=== PATIENT | female | born 1985 | race African-American/Black ===

== ENCOUNTER 2019-04-20 02:45 | Inpatient (IN) | payer OTHER ==
[2019-04-20] MEDS ORDERED: ELECTROLYTE-148 SOLN 500 ML IV ONE (03:00)
[2019-04-20 03:50] LABS: BASO % 0.6 % (0-2.0); HEMATOCRIT 38.4 % (32.4-45.2); HEMOGLOBIN 12.7 GM/dL (10.7-15.3); LYMPH % 18.6 % (8-40); MCH 28.2 pg (25.7-33.7); MEAN CELL VOLUME 85.6 fl (80-96); MEAN PLT VOLUME 10.5 fl (7.5-11.1); MONO % 8.4 % (3.8-10.2); NEUT % 71.4 % (42.8-82.8); PLATELET COUNT 187 K/MM3 (134-434); RBC 4.49 M/mm3 (3.60-5.2); RDW 15.7 % (11.6-15.6); WHITE BLOOD COUNT 8.2 K/mm3 (4.0-10.0)
[2019-04-20 04:01] LABS: INR 0.89 (0.83-1.09); PROTHROMBIN TIME (PATIENT) 10.5 SEC (9.7-13.0)
[2019-04-20 04:03] LABS: ACTIVATED PTT 26.3 SECONDS (25.2-36.5)
[2019-04-20 04:07] LABS: CALCIUM 8.7 mg/dL (8.5-10.1); CREATININE 0.8 mg/dL (0.55-1.3); POTASSIUM 4.2 mmol/L (3.5-5.1)
[2019-04-20 04:15] VITALS: BMI 34.4
[2019-04-20] MEDS ORDERED: CITRIC ACID/SODIUM CITRATE 30 ML UNIT-DOSE CUP PO ONE (04:30)
[2019-04-20] MEDS ORDERED: BENZOCAINE 20% 57 GM BOTTLE TP PRN (05:04)
[2019-04-20] MEDS ORDERED: BENZOCAINE 28 GM HEMORRHOIDAL OINTMENT PR PRN (05:04)
[2019-04-20] MEDS ORDERED: WITCH HAZEL 50% (TUCKS) 40 PAD/JAR PAD TP PRN (05:04)
[2019-04-20] MEDS ORDERED: diphenhydrAMINE HCL 25 MG CAPSULE (FP) PO PRN (05:04)
[2019-04-20] MEDS ORDERED: HYDROmorphone HCL 2 MG TABLET PO PRN (05:04)
[2019-04-20] MEDS ORDERED: METHYLERGONOVINE MALEATE 0.2 MG/1 ML AMP IM PRN (05:04)
[2019-04-20] MEDS ORDERED: morphine SULFATE/PF 0.5 MG/ML (2cc Syringe - QUVA) ONE (05:07)
--- NOTE | 2019-04-20 05:19 | HP ---
Past Medical History - Primary Care Physician PCP:: Natalie Oliva - Admission Chief Complaint: Previous Section History of Present Illness: 34 yo G 4 P 1021 EDC 04/28/2019 EGA 36. week with previous CS and active labor for repeat section AMA Hx of OBESIY VTOPx2 low lying placenta resolved Normal GCT History Source: Patient Limitations to Obtaining History: No Limitations - Past Medical History ...: 4 ...Para: 1 ...Term: 1 ...Induced : 2 ...LMP: 07/22/18 ... Weeks Gestation by Dates: 38.6 ...EDC by Dates: 04/28/19 ...EDC by Sono: 04/28/19 - Past Surgical History Past Surgical History: Yes: Hx Myomectomy: No Hx Transabdominal Cerclage: No - Smoking History Smoking history: Never smoked - Alcohol/Substance Use Hx Alcohol Use: No Home Medications - Allergies Allergies/Adverse Reactions: Allergies Allergy/AdvReac Type Severity Reaction Status Date / Time No Known Allergies Allergy Verified 02/01/19 17:31 - Home Medications Home Medications: Ambulatory Orders Pnv No.121/Iron/Folic Acid [ Multivitamin Tablet] 1 each PO DAILY Review of Systems - Review of Systems Constitutional: reports: No Symptoms Eyes: reports: No Symptoms HENT: reports: No Symptoms Neck: reports: No Symptoms Cardiovascular: reports: No Symptoms Respiratory: reports: No Symptoms Gastrointestinal: reports: Abdominal Pain Genitourinary: reports: No Symptoms Breasts: reports: No Symptoms Reported Musculoskeletal: reports: No Symptoms Integumentary: reports: No Symptoms Neurological: reports: No Symptoms Endocrine: reports: No Symptoms Hematology/Lymphatic: reports: No Symptoms Psychiatric: reports: No Symptoms Physical Exam - Maternity Vital Signs: Vital Signs Temperature 97.7 F 04/20/19 04:06 Pulse Rate 90 04/20/19 04:06 Respiratory Rate 20 04/20/19 04:06 Blood Pressure 137/77 04/20/19 04:06 O2 Sat by Pulse Oximetry (%) Constitutional: Yes: Well Nourished, No Distress Lungs: Clear to auscultation Breast(s): Yes: WNL - Abdominal Exam/OB Fundal Height: 38 Number of Fetuses: Single Presentation: Vertex Contractions: Yes Regularity: Regular Monitor Mode: External Heart Rate Location: [facility] Category: I - Vaginal Exam/OB Dilatation (cm): closed Amniotic Membrane Status: Intact Presentation: Vertex/Position - Physical Exam Musculoskeletal: Yes: WNL Extremities: Yes: WNL Edema: No Psychiatric: Yes: WNL, Alert, Oriented - Labs Lab Results: CBC, BMP 04/20/19 03:30 04/20/19 03:30 Hemorrhage Risk Assessment - Risk Factors Medium Risk Factors: Yes: Prior , uterine surgery,or multiple laparotomies Risk Score: 1 Risk Level: Medium Risk Problem List - Problems (1) Previous delivery affecting , antepartum Problems reviewed: Yes Code(s): O34.219 - MATERNAL CARE FOR UNSP TYPE SCAR FROM PREVIOUS DEL (2) 38 weeks gestation of Code(s): Z3A.38 - 38 WEEKS GESTATION OF Assessment/Plan IUP at 38.5 week Previous Section Active labor AMA Cat 1 Obesity Plan Repeat Section
--- NOTE | 2019-04-20 05:23 | OP ---
Operative Note - Note: Operative Date: 04/20/19 Pre-Operative Diagnosis: Previous Section. Active labor. IUP at 38.6 week. obesity. AMA Operation: Repeat Low transverse section Findings: LIve female Post-Operative Diagnosis: Same as Pre-op Surgeon: Natalie Oliva E Commerce Project Manager: Ke Savage Anesthesia: Spinal Estimated Blood Loss (mls): 600 Operative Report Dictated: Yes
[2019-04-20] MEDS ORDERED: ceFAZolin SODIUM 1 GM VIAL ONE (05:27)
[2019-04-20] MEDS ORDERED: OXYTOCIN 10 UNITS/ML VIAL ONE (05:52)
[2019-04-20] MEDS ORDERED: ONDANSETRON 4 MG/2 ML VIAL IVPUSH PRN (06:36)
[2019-04-20] MEDS ORDERED: IBUPROFEN 800 MG/8 ML IJ IVPB ONE (07:41)
[2019-04-20] MEDS ORDERED: OXYTOCIN 20 UNITS in 0.9% NS 20 UNIT/1,000 ML INFUS.BAG IV ONE (07:42)
[2019-04-20] MEDS: IBUPROFEN 800 MG/8 ML IJ IVPB PRN ×2 (07:59→18:02)
[2019-04-20] MEDS: OXYTOCIN 20 UNITS in 0.9% NS 20 UNIT/1,000 ML INFUS.BAG IV SCH (08:00)
[2019-04-21] MEDS ORDERED: oxyCODONE HCL 5 MG TABLET PO PRN ×2 (05:04)
[2019-04-21] MEDS ORDERED: BISACODYL 10 MG SUPP.RECT PR PRN (05:05)
[2019-04-21] MEDS: SIMETHICONE 80 MG TAB.CHEW (FP) PO PRN ×3 (06:32→21:43)
[2019-04-21] MEDS: IBUPROFEN 600 MG TABLET (FP) PO PRN ×3 (06:33→21:43)
[2019-04-21] MEDS: ACETAMINOPHEN 325 MG TABLET (FP) PO PRN ×3 (06:33→21:42)
[2019-04-21 07:36] LABS: HEMATOCRIT 36.3 % (32.4-45.2); MCH 28.2 pg (25.7-33.7); MCHC 33.2 g/dl (32.0-36.0); MEAN PLT VOLUME 9.9 fl (7.5-11.1); PLATELET COUNT 173 K/MM3 (134-434); RBC 4.27 M/mm3 (3.60-5.2); RDW 15.8 % (11.6-15.6); WHITE BLOOD COUNT 11.3 K/mm3 (4.0-10.0)
--- NOTE | 2019-04-21 12:42 | PN ---
Progress Note (short form) - Note Progress Note: 34F s/p repeat C/S under spinal and Duramorph. No new c/o. Vital Signs Temp 98 F 04/21/19 09:00 Pulse 86 04/21/19 09:00 Resp 20 04/21/19 09:00 BP 133/65 04/21/19 09:00 Pulse Ox 99 04/20/19 08:31 Intake & Output 04/20/19 04/21/19 04/21/19 23:59 11:59 23:59 Intake Total 1300 1000 Output Total 450 2900 Balance 850 -1900 Intake: IV 1300 1000 NORMAL SALINE+20 UNITS 1300 1000 OXYTOCIN - 20 unit In 1, 000 ml @ 125 mls/hr IV ASDIR [facility] Rx#:[id number] Output: Urine 450 2900 Schreiber 450 1400 Void 1500 Other: Voiding Method Indwelling Catheter Toilet CBC, BMP 04/21/19 06:57 04/20/19 03:30 - NO anesthesia complications
--- NOTE | 2019-04-21 14:54 | PN ---
Progress Note (SOAP) - Subjective Chief Complaint: Pt doing well - Current Medications Current Medications: Active Medications Acetaminophen (Tylenol -) 650 mg PO Q4H PRN PRN Reason: FEVER Last Admin: 04/21/19 06:33 Dose: 650 mg Benzocaine (Americaine 20% [place] -) 1 spray TP PRN PRN PRN Reason: Pain - Topical Benzocaine (Americaine Ointment -) 1 applic OH PRN PRN PRN Reason: Pain - Topical Bisacodyl (Dulcolax Suppository -) 10 mg OH PRN PRN PRN Reason: CONSTIPATION Diphenhydramine HCl (Benadryl -) 25 mg PO Q6H PRN PRN Reason: FOR ITCHING Diphenhydramine HCl (Benadryl Injection -) 25 mg IVPUSH Q4H PRN PRN Reason: Pruritis Parenteral Electrolytes (Plasma-Lyte 148 -) 1,000 mls @ 125 mls/hr IV ASDIR KAT Parenteral Electrolytes (Plasma-Lyte 148 -) 1,000 mls @ 125 mls/hr IV ASDIR KAT Oxytocin/Sodium Chloride (Normal Saline+20 Units Oxytocin -) 20 unit in 1,000 mls @ 125 mls/hr IV ASDIR KAT Last Admin: 04/20/19 08:00 Dose: 125 mls/hr Ibuprofen (Caldolor Injection -) 800 mg IVPB Q6H PRN PRN Reason: Fever - If PO not effective. Last Admin: 04/20/19 18:02 Dose: 800 mg Ibuprofen (Motrin -) 600 mg PO Q4H PRN PRN Reason: PAIN LEVEL 1 - 3 Last Admin: 04/21/19 06:33 Dose: 600 mg Methylergonovine Maleate (Methergine Injection -) 0.2 mg IM Q4H PRN PRN Reason: EXCESSIVE BLEEDING Ondansetron HCl (Zofran Injection) 4 mg IVPUSH Q4H PRN PRN Reason: NAUSEA Oxycodone HCl (Roxicodone -) 5 mg PO Q4H PRN PRN Reason: PAIN LEVEL 1-5 Oxycodone HCl (Roxicodone -) 10 mg PO Q4H PRN PRN Reason: PAIN LEVEL 6-10 Senna/Docusate Sodium (Pericolace -) 2 tablet PO HS PRN PRN Reason: CONSTIPATION Simethicone (Mylicon -) 80 mg PO Q4H PRN PRN Reason: GAS Last Admin: 04/21/19 06:32 Dose: 80 mg [place]/Glycerin (Tucks Pads -) 1 pad TP PRN PRN PRN Reason: Pain - Topical - Objective Vital Signs: Vital Signs Temperature 98 F 04/21/19 09:00 Pulse Rate 86 04/21/19 09:00 Respiratory Rate 20 04/21/19 09:00 Blood Pressure 133/65 04/21/19 09:00 O2 Sat by Pulse Oximetry (%) 99 04/20/19 08:31 ....Post : Yes: Uterus firm, Uterus non-tender Edema: No Labs Lab Results: CBCD WBC 11.3 K/mm3 (4.0-10.0) H 04/21/19 06:57 RBC 4.27 M/mm3 (3.60-5.2) 04/21/19 06:57 Hgb 12.0 GM/dL (10.7-15.3) 04/21/19 06:57 Hct 36.3 % (32.4-45.2) 04/21/19 06:57 MCV 85.0 fl (80-96) 04/21/19 06:57 MCHC 33.2 g/dl (32.0-36.0) 04/21/19 06:57 RDW 15.8 % (11.6-15.6) H 04/21/19 06:57 Plt Count 173 K/MM3 (134-434) 04/21/19 06:57 MPV 9.9 fl (7.5-11.1) 04/21/19 06:57 CMP Sodium 139 mmol/L (136-145) 04/20/19 03:30 Potassium 4.2 mmol/L (3.5-5.1) 04/20/19 03:30 Chloride 108 mmol/L (98-107) H 04/20/19 03:30 Carbon Dioxide 25 mmol/L (21-32) 04/20/19 03:30 Anion Gap 6 MMOL/L (8-16) L 04/20/19 03:30 BUN 10.0 mg/dL (7-18) 04/20/19 03:30 Creatinine 0.8 mg/dL (0.55-1.3) 04/20/19 03:30 Random Glucose 119 mg/dL (74-106) H 04/20/19 03:30 Calcium 8.7 mg/dL (8.5-10.1) 04/20/19 03:30 Problem List - Problems (1) Previous delivery affecting , antepartum Code(s): O34.219 - MATERNAL CARE FOR UNSP TYPE SCAR FROM PREVIOUS DEL (2) 38 weeks gestation of Code(s): Z3A.38 - 38 WEEKS GESTATION OF Assessment/Plan SP CS AMA POD1 Obesity Plan Continue present management
[2019-04-21] MEDS: ELECTROLYTE-148 SOLN 1,000 ML IV SCH ×2 (18:51)
[2019-04-21] MEDS: OXYTOCIN 20 UNITS in 0.9% NS 20 UNIT/1,000 ML INFUS.BAG IV SCH (18:52)
[2019-04-21] MEDS: SENNOSIDES/DOCUSATE COMBO (SENNA PLUS) TABLET (UD) PO PRN (21:43)
[2019-04-22] MEDS: IBUPROFEN 600 MG TABLET (FP) PO PRN ×3 (07:37→21:30)
[2019-04-22] MEDS: SIMETHICONE 80 MG TAB.CHEW (FP) PO PRN ×3 (07:38→21:30)
[2019-04-22] MEDS: ACETAMINOPHEN 325 MG TABLET (FP) PO PRN ×3 (07:38→21:31)
--- NOTE | 2019-04-22 07:43 | PN ---
Post Progress Note - Subjective Subjective: 34 yo Para 2 status post repeat , seen and evaluated. Doing well Post Day: 2 Type of Delivery: Repeat C/S Vital Signs: Vital Signs Temperature 98.0 F 04/21/19 22:00 Pulse Rate 87 04/21/19 22:00 Respiratory Rate 18 04/21/19 22:00 Blood Pressure 138/67 04/21/19 22:00 O2 Sat by Pulse Oximetry (%) 99 04/20/19 08:31 Breast Exam: Yes: Soft Uterus: Yes: Fundus below umbilicus Incision: Yes: Sutures intact Abdomen/GI: Yes: Abdomen soft, Tolerating PO Lochia: Yes: Rubra Lochia, amount: Small Extremities: Yes: Calves non-tender Activity: Ambulating - Labs Labs: CBC WBC 11.3 K/mm3 (4.0-10.0) H 04/21/19 06:57 RBC 4.27 M/mm3 (3.60-5.2) 04/21/19 06:57 Hgb 12.0 GM/dL (10.7-15.3) 04/21/19 06:57 Hct 36.3 % (32.4-45.2) 04/21/19 06:57 MCV 85.0 fl (80-96) 04/21/19 06:57 MCH 28.2 pg (25.7-33.7) 04/21/19 06:57 MCHC 33.2 g/dl (32.0-36.0) 04/21/19 06:57 RDW 15.8 % (11.6-15.6) H 04/21/19 06:57 Plt Count 173 K/MM3 (134-434) 04/21/19 06:57 MPV 9.9 fl (7.5-11.1) 04/21/19 06:57 Absolute Neuts (auto) 5.9 K/mm3 (1.5-8.0) 04/20/19 03:30 Neutrophils % 71.4 % (42.8-82.8) 04/20/19 03:30 Lymphocytes % 18.6 % (8-40) D 04/20/19 03:30 Monocytes % 8.4 % (3.8-10.2) 04/20/19 03:30 Eosinophils % 1.0 % (0-4.5) 04/20/19 03:30 Basophils % 0.6 % (0-2.0) 04/20/19 03:30 Nucleated RBC % 0 % (0-0) 04/20/19 03:30 Problem List - Problems (1) Status post repeat low transverse section Problems reviewed: Yes Code(s): Z98.891 - HISTORY OF UTERINE SCAR FROM PREVIOUS SURGERY Assessment/Plan Status post repeat Low Transverse Stable Ambulation Analgesia as needed Continue routine post op care
[2019-04-22] MEDS: SENNOSIDES/DOCUSATE COMBO (SENNA PLUS) TABLET (UD) PO PRN (21:30)
[2019-04-23 08:31] LABS: HEMATOCRIT 32.8 % (32.4-45.2); HEMOGLOBIN 10.8 GM/dL (10.7-15.3); MCHC 32.9 g/dl (32.0-36.0); MEAN CELL VOLUME 85.3 fl (80-96); MEAN PLT VOLUME 9.7 fl (7.5-11.1); PLATELET COUNT 210 K/MM3 (134-434); RBC 3.84 M/mm3 (3.60-5.2); RDW 15.6 % (11.6-15.6); WHITE BLOOD COUNT 9.3 K/mm3 (4.0-10.0)
[2019-04-23] MEDS: IBUPROFEN 600 MG TABLET (FP) PO PRN (10:05)
[2019-04-23] MEDS: ACETAMINOPHEN 325 MG TABLET (FP) PO PRN (10:05)
[2019-04-23] MEDS: SIMETHICONE 80 MG TAB.CHEW (FP) PO PRN (10:06)
--- NOTE | 2019-04-23 10:06 | PN ---
Post Progress Note - Subjective Subjective: Patient seen and evaluated, doing well. Post Day: 3 Type of Delivery: Repeat C/S Vital Signs: Vital Signs Temperature 97.8 F 04/23/19 08:00 Pulse Rate 73 04/23/19 08:00 Respiratory Rate 20 04/23/19 08:00 Blood Pressure 120/71 04/23/19 08:00 O2 Sat by Pulse Oximetry (%) 99 04/20/19 08:31 Breast Exam: Yes: Soft Uterus: Yes: Fundus below umbilicus Incision: Yes: Dressing dry and intact Abdomen/GI: Yes: Abdomen soft, Tolerating PO Lochia: Yes: Rubra Lochia, amount: Small Extremities: Yes: Calves non-tender Activity: Ambulating - Labs Labs: CBC WBC 9.3 K/mm3 (4.0-10.0) 04/23/19 07:55 RBC 3.84 M/mm3 (3.60-5.2) 04/23/19 07:55 Hgb 10.8 GM/dL (10.7-15.3) 04/23/19 07:55 Hct 32.8 % (32.4-45.2) 04/23/19 07:55 MCV 85.3 fl (80-96) 04/23/19 07:55 MCH 28.0 pg (25.7-33.7) 04/23/19 07:55 MCHC 32.9 g/dl (32.0-36.0) 04/23/19 07:55 RDW 15.6 % (11.6-15.6) 04/23/19 07:55 Plt Count 210 K/MM3 (134-434) D 04/23/19 07:55 MPV 9.7 fl (7.5-11.1) 04/23/19 07:55 Absolute Neuts (auto) 5.9 K/mm3 (1.5-8.0) 04/20/19 03:30 Neutrophils % 71.4 % (42.8-82.8) 04/20/19 03:30 Lymphocytes % 18.6 % (8-40) D 04/20/19 03:30 Monocytes % 8.4 % (3.8-10.2) 04/20/19 03:30 Eosinophils % 1.0 % (0-4.5) 04/20/19 03:30 Basophils % 0.6 % (0-2.0) 04/20/19 03:30 Nucleated RBC % 0 % (0-0) 04/20/19 03:30 Problem List - Problems (1) Status post repeat low transverse section Code(s): Z98.891 - HISTORY OF UTERINE SCAR FROM PREVIOUS SURGERY Assessment/Plan Status post repeat Low Transverse Stable Ambulation Analgesia as needed Continue routine post op care
[2019-04-23 11:18] VITALS: BP 134/70; PULSE 87; TEMP 98.6
--- NOTE | 2019-04-23 16:00 | PATH ---
Surgical Pathology Report Patient Name: [facility]. Rec. #: [id number] /Age/Gender: 1985 (Age: 34) / F Account: [id number] Location: [facility] OBS/TALEND DEVELOPER Taken: 04/20/2019 Received: 04/20/2019 Reported: 04/23/2019 Physicians: Natalie Oliva M.D. Specimen(s) Received PLACENTA Clinical History , previous , 38.6 weeks gestation, AMA, obese Final Diagnosis PLACENTA, SECTION: 490 G THIRD TRIMESTER PLACENTA WITH TRIVASCULAR UMBILICAL CORD AND UNREMARKABLE PLACENTAL MEMBRANES. Electronically Signed Keri Ramirez M.D. Gross Description The specimen is received fresh labeled placenta and is a 490 gram, 20.0 x 19.0 x 2.4 cm. placenta with attached membranes and umbilical cord. The attached membranes are colon, translucent with focal opacities and insert marginally. The umbilical cord measures 10 cm. in length and averages 1.1 cm. in diameter. The cord inserts centrally. No true knots or strictures are identified. Cut surface of the umbilical cord reveals 3 vessels. The surface is connolly-blue with minimal fibrin deposition and appropriate caliber vessels. The maternal surface is red-brown with focal defects. Sectioning reveals red-brown, spongy parenchyma. No lesions are identified. Nurse Outreach Case Manager sections are submitted in three cassettes as follows: 1- membrane rolls and umbilical cord; 2-3- full thickness sections of placenta. /04/20/2019 [facility]/04/20/2019
--- NOTE | 2019-04-28 13:48 | DS ---
Physical Exam-FOUNDRY FINISHER Vital Signs: Vital Signs Temperature 98.6 F 04/23/19 10:00 Pulse Rate 87 04/23/19 10:00 Respiratory Rate 20 04/23/19 10:00 Blood Pressure 134/70 04/23/19 10:00 O2 Sat by Pulse Oximetry (%) 99 04/20/19 08:31 Constitutional: Yes: Well Nourished, No Distress ....Post : Yes: Uterus firm, Uterus non-tender Breast(s): Yes: WNL Musculoskeletal: Yes: WNL Wound/Incision: Yes: Clean/Dry, Well Approximated Neurological: Yes: WNL, Alert, Oriented Labs: CBC, BMP 04/23/19 07:55 04/20/19 03:30 Delivery - Delivery Section: Low Flap Transverse Type of Anesthesia: Spinal Episiotomy/Laceration: None EBL (cc): 650 Delivery, Single - Stages of Labor Date 1st Stage Initiatied: 04/20/19 Time 1st Stage Initiated: 02:00 Date of Delivery: 04/20/19 Time of Delivery: 05:43 Time Placenta Delivered: 05:44 Placenta: Yes: Spontaneous - Condition of Infant Pickling Drum Operator/Book Publisher Present: No Gender: Female Weight: 6 lb 15 oz Position: Left, OT Total Hours ROM (Hrs/Mins): 2mins - 1 Minute Total Score: 9 5 Minutes Total Score: 9 - Feeding Plan Initial Plan: Elected not to breastfeed exclusively throughout hospitalization Discharge Summary Problems reviewed: Yes Reason For Visit: REPEAT Procedures: Principal: Repeat Section Hospital Course: Unremarkable Condition: Good - Instructions Diet, Activity, Other Instructions: Physical activity Resume your normal everyday activity as tolerated no heavy lifting or exercise until seen by your surgeon. You may walk unlimited lauren of and climb stairs. You may resume driving the car when you feel safe and comfortable behind the wheel. No sexual activity as instructed. Wound care If you have a bandage, leave it on, and keep dry for 48-72 hours. After that time discard the outer bandage. If they are tapes on the skin under the out of bandage leave them in place. They will peel off in the next 7 to 10 days. Do Not Peel them off. You may shower the day after surgery. If there are tapes present on the skin, you may shower over them. Diet There are no dietary restrictions. Eat healthy, high-fiber foods. Drink 6 to 8 glasses of liquid each day. This will assist in keeping your bowels are regular. Pain management You may take Tylenol or acetaminophen or Ibuprofen (for example, Motrin, Advil etc.) from my pain prescription medication is ordered should be taken as prescribed for moderate to severe pain. Call MD for any of the following: Severe pain not relieved by medication Fever of 101 or higher Excessive bleeding or drainage on dressing Inability to urinate return to office in 1 week for incision check and 6 weeks for postportum check. call for appointment. Referrals: Natalie Oliva MD [Staff Physician] - Disposition: HOME - Home Medications Comprehensive Discharge Medication List: Ambulatory Orders Pnv No.121/Iron/Folic Acid [ Multivitamin Tablet] 1 each PO DAILY Ibuprofen [Motrin -] 600 mg PO QID #28 tablet 04/23/19
== END 2019-04-23 13:00 | disposition home or self-care (01) | DRG 788 ==
LOC: JLDR 02:45 → J3W 08:42
PROVIDERS: ADMIT Obstetrics & Gynecology; ATTEND Obstetrics & Gynecology
PROC: 10D00Z1 Extraction of Products of Conception, Low, Open Approach (ICD-10-PCS; principal; 2019-04-20)
DX: O34.219 Maternal care for unspecified type scar from previous cesarean delivery (principal); Z3A.38 38 weeks gestation of pregnancy; Z37.0 Single live birth
CPT/HCPCS: 36415; 36600; 80048; 82803; 85025; 85027; 85610; 85730; 86593; 86850; 86900; 86901; 88307-TC